=== PATIENT | male | born 1970 | race Caucasian/White ===

== ENCOUNTER → 2018-02-01 | Outpatient (CLI) | payer OTHER ==
[2018-02-01 18:12] LABS: Source, Urine Clean Catch
[2018-02-01 18:13] LABS: Appearance, Urine Clear (Clear); Bilirubin, Urine Neg (Neg); Blood, Urine Neg (Neg); Color, Urine Yellow (P-Yellow); Glucose Qualitative, Urine Neg (Normal); Ketones, Urine Neg (Neg); Leukocyte Esterase, Urine Neg (Neg); Nitrite, Urine Neg (Neg); Protein, Urine Neg (Neg); Specific Gravity, Urine 1.005 (1.003-1.022); Urobilinogen, Urine NORM (Normal)
== END ==
LOC: LAB SHORT 17:58 → LAB EV 17:58
PROVIDERS: Physician Assistant
DX: N50.811 Right testicular pain (principal); N50.89 Other specified disorders of the male genital organs
CPT/HCPCS: 81003

== ENCOUNTER 2020-06-18 13:23 | Day surgery (SDC) | payer OTHER ==
[~2020-06-18] VITALS: Ht 177.8 cm; Wt 89.9 kg
--- NOTE | 2020-06-18 17:04 | NUR ---
06/18/20 1704 Perri Summers PT C/O PRESSURE IN R ELBOW, STILL VERY SLEEPY. MEDICATED WITH FENTANYL 100MCG (2 DOSES OF 50MCG) PER ORDERS. AT BEDSIDE. VSS. WILL CONTINUE TO MONITOR.
== END 2020-06-18 17:55 | disposition home or self-care (01) ==
LOC: ORSCSDS 13:23
PROVIDERS: Orthopaedic Surgery
PROC: 0LM30ZZ Reattachment of Right Upper Arm Tendon, Open Approach (ICD-10-PCS; principal; 2020-06-18 15:00)
DX: S46.201A Unspecified injury of muscle, fascia and tendon of other parts of biceps, right arm, initial encounter (principal); G47.33 Obstructive sleep apnea (adult) (pediatric)
CPT/HCPCS: A9270-GY; C1713; J0690; J1100; J2250; J2405; J2704; J2795; J3010; J7120

== ENCOUNTER 2021-09-23 09:14 | Day surgery (SDC) | payer OTHER ==
[~2021-09-23] VITALS: Ht 177.8 cm; Wt 86.2 kg
[2021-09-23] MEDS ORDERED: TESTOSTERONE75 G1 (09:49)
[2021-09-23] MEDS ORDERED: OXYC10ER (09:49)
[2021-09-23] MEDS ORDERED: FISH OIL 1,2001 EAC7 (09:49)
[2021-09-23] MEDS ORDERED: ELDERTONIC LIQ473 ML (09:50)
== END 2021-09-23 11:17 | disposition home or self-care (01) ==
LOC: ORSCSDS 09:14
PROVIDERS: Surgery
PROC: 0DBN8ZX Excision of Sigmoid Colon, Via Natural or Artificial Opening Endoscopic, Diagnostic (ICD-10-PCS; principal; 2021-09-23 10:30)
DX: Z12.11 Encounter for screening for malignant neoplasm of colon (principal); D12.5 Benign neoplasm of sigmoid colon; G47.30 Sleep apnea, unspecified; F41.9 Anxiety disorder, unspecified; E78.5 Hyperlipidemia, unspecified; E55.9 Vitamin D deficiency, unspecified; Z79.899 Other long term (current) drug therapy
CPT/HCPCS: 88305; J2704; J7120

== ENCOUNTER 2023-05-06 09:37 | Emergency (ER) | payer BC, OTHER ==
[~2023-05-06] VITALS: Ht 175.3 cm; Wt 86.2 kg
[~2023-05-06 09:37] MED LIST: ELDERTONIC LIQ473 ML; FISH OIL 1,2001 EAC7; OXYC10ER; TESTOSTERONE75 G1 PO
[2023-05-06 12:38] VITALS: BP 132/84
== END 2023-05-06 12:38 | disposition home or self-care (01) ==
LOC: ER 09:37
DX: R51.9 Headache, unspecified (principal)
CPT/HCPCS: 96365; 96375; 99283-25; A9270; J0780; J1100; J1200; J1630; J1885; J3475